=== PATIENT | male | born 1940 | race Caucasian/White ===

== ENCOUNTER → 2018-09-08 | Day surgery (SDC) | payer MEDICARE, BC ==
[~2018-09-08] MED LIST: Lactated Ringers 1,000 ML IV SCH; Propofol 200 MG/20 ML SDV IV ONE
--- NOTE | 2018-09-11 10:07 | OR ---
DATE OF OPERATION: 09/08/2018 PREOPERATIVE DIAGNOSIS: HISTORY OF POLYPS. POSTOPERATIVE DIAGNOSIS: 1. SIGMOID DIVERTICULOSIS. 2. FIVE TUBULAR ADENOMAS. SURGEON: Eloy Hoyt MD PROCEDURE: DIAGNOSTIC COLONOSCOPY WITH FORCEPS POLYP REMOVAL X5. ANESTHESIA: MAC via SPOOL WINDER. COMPLICATIONS: None. SPECIMEN: Five separate tubular adenomas, see report, all less than 0.5 cm. FINDINGS: 1. Full-length colonoscopy. 2. Mild to moderate sigmoid diverticulosis. 3. Five separate tubular adenomas, less than 0.5 cm. RECOMMENDATIONS: Followup colonoscopy in 5 years as needed. INDICATIONS: The patient was in to see Rosa Elena Hall for routine physical. It has been 10 years since his last scope, and he has a history of polyps. She sent him for diagnostic procedure. DESCRIPTION OF PROCEDURE: The patient was prepped and draped, placed in the left lateral decubitus position. A lubricated Olympus colonoscope was inserted and easily advanced to the cecum. We were able to directly visualize the ileocecal valve and appendiceal orifice, palpate and visualize the light in the right lower quadrant. The bowel prep was excellent. Upon withdrawal of the scope; cecum, ascending, and transverse colon appeared benign. Right at the splenic flexure, the patient had 2 small flat sessile polyps, each easily removed with forceps. The larger of the two required 2 forceps biopsies. In the proximal descending colon, the patient had a third small polyp, also removed with forceps without difficulty. The sigmoid area had diffuse diverticular disease, most notable around the rectosigmoid junction, mild to moderate in severity, without inflammatory change. Two more smaller polyps were found in the sigmoid, one in the proximal and one in the mid portion, each removed with forceps without problem. The rest of the rectosigmoid junction and the rectal vault appeared benign. Retroflexion of the scope in the rectum showed no anal lesions. Air was suctioned and scope removed without complication. JESSICA/ANDREA /[id number]
== END ==
LOC: CC.SDS 07:57
PROVIDERS: ATTEND Family Medicine
DX: Z12.11 Encounter for screening for malignant neoplasm of colon (principal); D12.5 Benign neoplasm of sigmoid colon; D12.3 Benign neoplasm of transverse colon; D37.4 Neoplasm of uncertain behavior of colon; K57.30 Diverticulosis of large intestine without perforation or abscess without bleeding; E11.36 Type 2 diabetes mellitus with diabetic cataract; Z86.010 Personal history of colon polyps; Z87.891 Personal history of nicotine dependence; Z79.84 Long term (current) use of oral hypoglycemic drugs; Z79.899 Other long term (current) drug therapy
CPT/HCPCS: J2704; J7120

== ENCOUNTER 2021-04-13 13:38 | Emergency (ER) | payer MEDICARE, BC ==
[2021-04-13 14:23] LABS: CHLORIDE,CL 104 mEq/L (98-106); SODIUM,NA 145 mEq/L (136-145)
--- NOTE | 2021-04-13 14:37 | EDM.PDOC ---
ED HPI GENERAL MEDICAL PROBLEM - General Chief Complaint: General Stated Complaint: DIZZY Time Seen by Provider: 04/13/21 14:10 Source of Information: Reports: Patient History Limitations: Reports: No Limitations - History of Present Illness INITIAL COMMENTS - FREE TEXT/NARRATIVE: States that he has room spinning dizziness. Was seen in the ER in [place] yesterday and had CT that was negative for stroke and he has vertigo. Has been taking the Dramimine and still has dizziness. He comes in today for recheck. Has no known head injury. Onset: Gradual - Related Data Allergies Allergy/AdvReac Type Severity Reaction Status Date / Time No Known Allergies Allergy Verified 04/13/21 13:43 Home Meds: Home Meds Amitriptyline HCl 25 mg PO DAILY 09/05/18 [History] atorvaSTATin Calcium [Atorvastatin Calcium] 10 mg PO DAILY 09/05/18 [History] metFORMIN HCl [Metformin HCl] 500 mg PO DAILY 09/05/18 [History] Ondansetron [Zofran ODT] 4 mg PO Q6H PRN 04/13/21 [History] dimenhyDRINATE [Dramamine] 25 mg PO TID 04/13/21 [History] rOPINIRole [Requip] 0.5 mg PO BEDTIME 04/13/21 [History] Past Medical History HEENT History: Reports: Impaired Vision Cardiovascular History: Reports: Hypertension Endocrine/Metabolic History: Reports: Diabetes, Type II - Infectious Disease History Infectious Disease History: Reports: None Social & Family History - Family History Family Medical History: No Pertinent Family History - Tobacco Use Tobacco Use Status *Q: Never Tobacco User - Caffeine Use Caffeine Use: Reports: Coffee ED ROS GENERAL - Review of Systems Review Of Systems: See Below Constitutional: Denies: Fever, Chills HEENT: Reports: Vertigo Respiratory: Reports: No Symptoms Cardiovascular: Reports: No Symptoms GI/Abdominal: Reports: No Symptoms Neurological: Reports: Confusion Psychiatric: Reports: No Symptoms ED EXAM, GENERAL - Physical Exam Exam: See Below Exam Limited By: No Limitations General Appearance: Alert, WD/WN, Mild Distress Eye Exam: Bilateral Eye: PERRL Ears: Normal External Exam, Normal Canal, Normal TMs Throat/Mouth: Normal Inspection, Normal Oropharynx, Normal Voice Head: Atraumatic, Normocephalic Respiratory/Chest: No Respiratory Distress, Lungs Clear, Normal Breath Sounds Cardiovascular: Normal Peripheral Pulses, Regular Rate, Rhythm, No Edema GI/Abdominal: Normal Bowel Sounds, Soft, Non-Tender Extremities: Normal Inspection Neurological: Alert, Oriented Skin Exam: Warm, Dry, Intact Course - Vital Signs Last Recorded V/S: Last Vital Signs Temp 98.0 F 04/13/21 13:40 Pulse 81 04/13/21 14:19 Resp 16 04/13/21 13:40 BP 155/76 H 04/13/21 14:19 Pulse Ox 98 04/13/21 13:40 - Orders/Labs/Meds Labs: Laboratory Tests 04/13/21 04/13/21 04/13/21 Range/Units 14:00 14:00 14:00 WBC 7.5 (4.0-11.0) 10^3/uL RBC 4.72 (4.50-6.00) x10^6/uL Hgb 13.7 L (14.0-18.0) g/dL Hct 42.4 (42.0-52.0) % MCV 89.8 (83.0-97.0) fL MCH 29.0 (27.0-32.0) pg MCHC 32.3 (32.0-36.0) g/dL RDW Coeff of Pasquale 13.1 (11.0-15.0) % Plt Count 214 (150-400) 10^3/uL Immature Gran % (Auto) 0.3 (0.0-4.9) % Neut % (Auto) 65.0 (41-71) % Lymph % (Auto) 21.5 L (24-44) % [place] % (Auto) 10.6 H (0-10) % Eos % (Auto) 1.9 (0-6) % Baso % (Auto) 0.7 (0-1) % Neut # (Auto) 4.90 (1.80-8.00) x10^3/uL Lymph # (Auto) 1.62 (0.60-5.00) 10^3/uL [place] # (Auto) 0.80 (0.00-1.50) 10^3/uL Eos # (Auto) 0.14 (0.00-1.50) 10^3/uL Baso # (Auto) 0.05 (0.00-0.50) 10^3/uL Immature Gran # (Auto) 0.02 (0.00-0.49) 10^3/uL PT 11.6 (9.7-12.3) SEC INR 1.06 (0.92-1.18) APTT 25.0 (23.2-32.3) SEC Sodium 145 (136-145) mEq/L Potassium 4.0 (3.5-5.0) mEq/L Chloride 104 (98-106) mEq/L Carbon Dioxide 29 (21-32) mmol/L BUN 23 H (7-18) mg/dL Creatinine 1.1 (0.7-1.3) mg/dL Est Cr Clr Drug Dosing 46.72 mL/min Estimated GFR (MDRD) > 60 (>=60) mL/min Glucose 196 H (75-99) mg/dL Calcium 9.4 (8.4-10.1) mg/dL Magnesium 1.8 (1.8-2.4) mg/dL Total Bilirubin 0.5 (0.0-1.0) mg/dL AST 9 L (15-37) U/L ALT 19 (12-78) U/L Alkaline Phosphatase 84 (46-116) U/L Lactate Dehydrogenase 113 (100-190) U/L Creatine Kinase 13 L (35-232) U/L Troponin I High Sens 6.5 (<=76) pg/mL Total Protein 7.7 (6.4-8.2) g/dL Albumin 4.1 (3.4-5.0) g/dL Lipase 71 L (73-393) U/L Departure - Departure Time of Disposition: 14:36 Disposition: Home, Self-Care 01 Clinical Impression: Inner ear dysfunction Qualifiers: Laterality: bilateral Qualified Code(s): H83.93 - Unspecified disease of inner ear, bilateral - Discharge Information *PRESCRIPTION DRUG MONITORING PROGRAM REVIEWED*: Not Applicable *COPY OF PRESCRIPTION DRUG MONITORING REPORT IN PATIENT HUMERA: Not Applicable Referrals: PCP,Not In Area [Primary Care Provider] - Forms: ED Department Discharge Additional Instructions: will be taken to PT now for canalith repositioning continue on the dramimine and the zofran If not improving recheck with Primary care provider. Sepsis Event Note (ED) - Evaluation Sepsis Screening Result: No Definite Risk - Focused Exam Vital Signs: Vital Signs Temp Pulse Resp BP Pulse Ox 04/13/21 14:19 81 155/76 H 04/13/21 13:40 98.0 F 70 16 174/82 H 98 - Problem List & Annotations (1) Inner ear dysfunction SNOMED Code(s): 377404421 Code(s): H83.90 - UNSPECIFIED DISEASE OF INNER EAR, UNSPECIFIED EAR Status: Acute Priority: High Qualifiers: Laterality: bilateral Qualified Code(s): H83.93 - Unspecified disease of inner ear, bilateral - Problem List Review Problem List Initiated/Reviewed/Updated: Yes - Assessment/Plan Plan: continue the meds from [place] Go to PT now for canalith repositioning recheck if not improving
== END 2021-04-13 14:40 | disposition home or self-care (01) ==
LOC: CC.ED 13:38
DX: H83.93 Unspecified disease of inner ear, bilateral (principal); I10 Essential (primary) hypertension; E11.9 Type 2 diabetes mellitus without complications; Z79.84 Long term (current) use of oral hypoglycemic drugs; Z79.899 Other long term (current) drug therapy
CPT/HCPCS: 36415; 80053; 82550; 83615; 83690; 83735; 84484; 85025; 85610; 85730; 93005; 99284-25